=== PATIENT | male | born 1955 | race Caucasian/White ===

== ENCOUNTER 2021-11-21 08:29 | Day surgery (SDC) | payer MEDICARE, BC ==
[2021-11-21] VITALS (11 sets, daily range): BP systolic 101–130; BP diastolic 44–77
[~2021-11-21] VITALS: Ht 190.5 cm; Wt 137.3 kg
[2021-11-21] MEDS ORDERED: LIDOcaine 1% 30ml preserv. free vial SQ STA (09:02)
[2021-11-21] MEDS ORDERED: LOP12.5T PO (09:03)
[2021-11-21] MEDS ORDERED: ROSU40TA PO (09:03)
[2021-11-21] MEDS ORDERED: CLOP75TA15 PO (09:03)
[2021-11-21] MEDS ORDERED: DOFE250C4 PO (09:03)
[2021-11-21] MEDS ORDERED: DABI150C PO (09:03)
[2021-11-21] MEDS ORDERED: midazolam 1 mg/ML 2ml injection ONE (09:54)
[2021-11-21] MEDS ORDERED: fentaNYL/PF 50MCG/1 ML 2ML syringe ONE (09:54)
== END 2021-11-21 12:00 | disposition home or self-care (01) ==
LOC: SSTAY O 08:29
PROVIDERS: ATTEND Radiology Vascular & Interventional Radiology
DX: R59.0 Localized enlarged lymph nodes (principal); I25.10 Atherosclerotic heart disease of native coronary artery without angina pectoris; E78.00 Pure hypercholesterolemia, unspecified; F32.9 Major depressive disorder, single episode, unspecified; I48.91 Unspecified atrial fibrillation; Z95.1 Presence of aortocoronary bypass graft; Z79.01 Long term (current) use of anticoagulants; Z79.899 Other long term (current) drug therapy; Z85.89 Personal history of malignant neoplasm of other organs and systems
CPT/HCPCS: 38505; 77012; 88184; 88185; 99152; 99153; J2250; J3010

== ENCOUNTER 2021-11-24 07:27 | Day surgery (SDC) | payer MEDICARE, BC ==
[~2021-11-24] VITALS: Ht 190.5 cm; Wt 134.6 kg
[2021-11-24] VITALS (14 sets, daily range): BP systolic 99–128; BP diastolic 50–74
[~2021-11-24 07:27] MED LIST: CLOP75TA15 PO; DABI150C PO; DOFE250C4 PO; LOP12.5T PO; ROSU40TA PO
[2021-11-24] MEDS ORDERED: midazolam 1 mg/ML 2ml injection ONE (09:04)
[2021-11-24] MEDS ORDERED: fentaNYL/PF 50MCG/1 ML 2ML syringe ONE (09:05)
== END 2021-11-24 11:30 | disposition home or self-care (01) ==
LOC: SSTAY O 07:27
PROVIDERS: ATTEND Radiology Vascular & Interventional Radiology
DX: R59.0 Localized enlarged lymph nodes (principal); I25.10 Atherosclerotic heart disease of native coronary artery without angina pectoris; E78.00 Pure hypercholesterolemia, unspecified; F32.9 Major depressive disorder, single episode, unspecified; I48.91 Unspecified atrial fibrillation; Z87.891 Personal history of nicotine dependence; Z95.1 Presence of aortocoronary bypass graft; Z98.890 Other specified postprocedural states; Z79.899 Other long term (current) drug therapy; Z79.01 Long term (current) use of anticoagulants
CPT/HCPCS: 38505; 77012; 88184; 88185; J2250; J3010